=== PATIENT | female | born 1990 | race Two or more races ===

== ENCOUNTER 2017-04-03 06:31 | Inpatient (IN) | payer OTHER ==
[~2017-04-03] VITALS: Ht 160 cm; Wt 77.0 kg
--- NOTE | ~2017-04-03 | OR ---
PATIENT'S NAME: CRUZ MURPHY [facility] AGE: 27 Y [address] ROOM: [place] [id number] LOCATION: [facility] ADMIT DATE: 04/03/2017 OR/Procedure Report DISCHARGE DATE: FAMILY PHYSICIAN: Ruby Esquivel MD ATTENDING PHYSICIAN: MATILDA WILSON SURGEON: Matilda Wilson MD PORTABLE IRRIGATION OPERATOR: None. DATE OF PROCEDURE: 04/03/2017 PROCEDURE PERFORMED: Spontaneous vaginal delivery over intact perineum. PRE-DELIVERY DIAGNOSES: 1. Intrauterine at 40 weeks and 0 days. 2. History of gestational hypertension in prior . POST DELIVERY DIAGNOSES: 1. Intrauterine at 40 weeks and 0 days. 2. History of gestational hypertension in prior . 3. Small for gestational age. ANESTHESIA: Anesthesia was with epidural. ANTIBIOTICS: None indicated. FINDINGS: Viable male , weight of 5 pounds 11 ounces. score 8 and 9. Intact placenta with 3-vessel cord. No cervical vaginal or perineal lacerations noted. SPECIMENS: Cord blood. ESTIMATED BLOOD LOSS: 300 mL. COMPLICATIONS: None. DISPOSITION: The patient and remained in room. INDICATION FOR THE PROCEDURE: The patient is a 27-year-old, G3, P2-0-0-2, who presented at 40 weeks and 0 days for scheduled induction of labor. was complicated by history of gestational hypertension in previous . She was 2, 75, and -1 on presentation. An AROM was performed with clear fluid. She was started on Pitocin per protocol. status was reassuring until the patient was noted to be anterior lip. At that time, she was having some deep variable deceleration. Intrauterine resuscitation was performed and Pitocin turned off and then the heart tones improved. When she was noted to be complete, expulsive efforts began. PATIENT'S NAME: RICARDO MURPHYA Curtis [facility] AGE: 27 Y [address] ROOM: [place] [id number] LOCATION: [facility] ADMIT DATE: 04/03/2017 OR/Procedure Report DISCHARGE DATE: FAMILY PHYSICIAN: Ruby Esquivel MD ATTENDING PHYSICIAN: MATILDA WILSON DESCRIPTION OF THE PROCEDURE: The patient was placed in dorsal lithotomy position in [facility]. She was prepped and draped in the usual sterile fashion. With maternal expulsive efforts, head delivered and was allowed to restitute. With the assistance of gentle downward and then upward traction with maternal expulsive efforts, shoulders were delivered followed by the remainder of body. was placed on the mother's chest. Cord was clamped and cut. The at that time, appeared dusky in color and handed off to the awaiting NICU nurses. Cord blood was obtained. was noted to have a vigorous cry shortly thereafter. Gentle downward traction was placed on the cord and IV Pitocin had been started per protocol. Placenta delivered spontaneously and was intact. No cervical vaginal or perineal lacerations were noted. Infant was doing well at that time, and had score of 8 and 9 and was felt to be stable to remain in the room with the mother. MD ALEX KIRBY/angie /[id number] d: 04/03/171826 t: 04/08/17 194, OPERATIVE SUMMARY
[2017-04-03 07:35] LABS: BASOPHIL % 0.4 %; EOSINOPHIL # 0.1 K/uL (0.0-0.5); EOSINOPHIL % 0.8 %; HEMATOCRIT 36.2 % (33.0-46.0); HEMOGLOBIN 12.7 g/dL (11.0-15.0); IMMATURE GRANULOCYTE # 0.2 K/uL (0.0-0.3); IMMATURE GRANULOCYTE % 1.5 %; LYMPHOCYTE # 2.4 K/uL (0.8-4.0); LYMPHOCYTE % 23.6 %; MCH 29.9 pg (27.0-34.0); MCHC 35.1 gm/dL (32.0-36.5); MCV 85.2 fl (83.0-98.0); MONOCYTE # 0.5 K/uL (0.0-1.0); MONOCYTE % 5.2 %; MPV 9.6 fl (9.4-12.4); NEUTROPHIL % 68.5 %; NRBC % 0 /100WBC (0-0.00); PLATELET COUNT 261 K/uL (150-450); RBC 4.25 M/uL (3.50-5.00); RDW-CV 12.8 % (11.9-14.6); WBC 10.2 K/uL (4.0-11.0)
[2017-04-03] MEDS ORDERED: PRENATAL 1+1)(P1 TAB PO (07:55)
[2017-04-04 06:03] LABS: BASOPHIL % 0.2 %; EOSINOPHIL # 0.1 K/uL (0.0-0.5); EOSINOPHIL % 0.7 %; HEMATOCRIT 34.6 % (33.0-46.0); HEMOGLOBIN 12.4 g/dL (11.0-15.0); IMMATURE GRANULOCYTE % 0.3 %; LYMPHOCYTE # 1.8 K/uL (0.8-4.0); LYMPHOCYTE % 16.9 %; MCHC 35.8 gm/dL (32.0-36.5); MCV 86.5 fl (83.0-98.0); MONOCYTE # 0.7 K/uL (0.0-1.0); MONOCYTE % 6.9 %; MPV 9.3 fl (9.4-12.4); NEUTROPHIL # (ANC) 8.1 K/uL (1.8-7.8); NRBC % 0 /100WBC (0-0.00); RDW-CV 12.8 % (11.9-14.6); WBC 10.7 K/uL (4.0-11.0)
[2017-04-04 06:06] LABS: PLATELET COUNT 192 K/uL (150-450)
[2017-04-05] MEDS ORDERED: SURFAK240 MG PO (10:45)
[2017-04-05] MEDS ORDERED: MOTRIN800 MG PO (10:45)
[2017-04-05] MEDS ORDERED: NORCO 5-325 TA1 EACH (10:46)
[2017-04-05] MEDS ORDERED: NORCO 5-325 TA1 EACH PO (10:48)
== END 2017-04-05 12:25 | disposition disaster alternative care site (69) | DRG 775 ==
LOC: GOBM 06:31 → GOBS 06:31 → GOBM 06:32 → GOBS 06:32 → GOBM 15:05 → GOBS 04-05 12:25
PROVIDERS: ADMIT Obstetrics & Gynecology
PROC: 10E0XZZ Delivery of Products of Conception, External Approach (ICD-10-PCS; principal; 2017-04-03)
PROC: 3E033VJ Introduction of Other Hormone into Peripheral Vein, Percutaneous Approach (ICD-10-PCS; principal; 2017-04-03)
PROC: 10907ZC Drainage of Amniotic Fluid, Therapeutic from Products of Conception, Via Natural or Artificial Opening (ICD-10-PCS; principal; 2017-04-03)
DX: O76 Abnormality in fetal heart rate and rhythm complicating labor and delivery (principal); Z86.79 Personal history of other diseases of the circulatory system; Z37.0 Single live birth; Z3A.40 40 weeks gestation of pregnancy
CPT/HCPCS: J2001; J2590; J3010; J7120